=== PATIENT | male | born 2000 | race Caucasian/White ===

== ENCOUNTER 2023-11-15 20:11 | Emergency (ER) | payer OTHER, SELFPAY ==
--- NOTE | ~2023-11-15 | XR_ITS ---
EXAMINATION: XR HAND, RIGHT CLINICAL INFORMATION: Evaluate for foreign body in index finger COMPARISON: None available. TECHNIQUE: PA, lateral, and oblique views of the right hand. FINDINGS: The bones and soft tissues are normal. No fracture. Alignment is anatomic. Joint spaces are maintained. No erosions or soft tissue calcifications. XR/XR hand RT 2V IMPRESSION: Normal right hand. No foreign bodies seen
[2023-11-15 20:26] VITALS: BP 113/62; PULSE 75; RESP 18; TEMP 36.7; O2SAT 97; BMI 30.7
--- NOTE | 2023-11-15 21:31 | ED.EXTPRO ---
HPI - Extremity Problem General Chief complaint: Extremity Injury, Upper Stated complaint: R hand inj Time Seen by Provider: 11/15/23 21:31 Source: patient and RN notes reviewed Mode of arrival: ambulatory Limitations: no limitations History of Present Illness HPI Narrative: This is a 23-year-old male, with no known medical problems, presenting to the emergency department with complaints of right hand pain status post hitting a mirror. Patient states that he was playing with his girlfriend when suddenly he fell and his right hand punched a mirror which caused the mirror to break. He lacerated the dorsum of his hand. He is unsure of his tetanus is up-to-date. Denies taking any medications prior to his arrival. Denies any numbness or tingling. No other complaints or concerns at this time. MD Complaint: extremity pain Onset (ago): hour(s) Pain Consistency: constant Location: right and upper extremity Quality: burning Radiation: none Relieving factors: nothing Exacerbating factors: nothing Associated symptoms: denies other symptoms Related Data Allergies Allergy/AdvReac Type Severity Reaction Status Date / Time No Known Allergies Allergy Verified 11/15/23 20:25 [No Known Allergies*] Review of Systems Review of Systems: Yes all other systems are reviewed and are negative [facility] Past Medical History Attestation statement: The following information was validated with the patient. Social History Social History Advance Directives: No Advance Directives Information Provided: No Physical Exam Vital Signs: Vital Signs: Last Vital Signs Temp 98.1 F 11/15/23 22:35 Pulse 75 11/15/23 22:35 Resp 18 11/15/23 22:35 BP 133/62 11/15/23 22:35 Pulse Ox 98 11/15/23 22:35 O2 Del Method Room Air 11/15/23 22:35 BMI result Body Mass Index 30.7 Const: Other: General: Awake, alert, and oriented X3. No acute distress. HEENT: Normal inspection CVS: Normal heart rate and rhythm. Pulses normal. Respiratory: No respiratory distress Skin: Warm, dry, no rashes noted to exposed skin. Normal skin color. Normal skin turgor. Extremities: right hand dosal aspect there are multiple superficial lacerations noted to the dorsum of the hand, no bony tenderness. No surrounding ear edema, edema, or active bleeding. There is a 3 cm superficial laceration noted to the lateral aspect of the 3rd digit, no active bleeding. There is also a 2 cm linear superficial laceration noted overlying the 3rd metacarpal. Full range of motion. Neuro: Oriented X 3. No motor deficit. No sensory deficit. Medications Administered Discontinued Medications Generic Name Dose Route Start Last Admin Trade Name Freq PRN Reason Stop Dose Admin Diphtheria/Tetanus/Acell Pertussis 0.5 ml 11/15/23 22:15 11/15/23 22:32 Diphth,Pertus(Acell),Tet Adult 0.5 Ml Syringe IM 11/15/23 22:16 0.5 ml .ONCE ONE Administration Medical Decision Making Medical Decision Making MDM Narrative: This is a 23-year-old male presenting to the emergency department for evaluation of right hand pain status post hitting a mirror with his hand. This was accidental. Patient has scattered superficial abrasions noted to the dorsum of the hand without any active bleeding. Wounds are superficial and do not require suturing. Patient is unsure when his last tetanus was. X-ray was obtained, no foreign bodies seen. Patient given return precautions. Wounds are clean, does not require antibiotics at this time. Given return precautions as well as wound care management. Patient understands and agrees with plan. Patient stable for discharge. Differential Diagnosis Differential Diagnoses: The differential diagnosis associated with the presentation includes Fracture, contusion, laceration, abrasion Radiology Impression Discussion of test interpretation with radiology: I have reviewed the radiologist's reading. Radiologist Impression: EXAMINATION: XR HAND, RIGHT CLINICAL INFORMATION: Evaluate for foreign body in index finger COMPARISON: None available. TECHNIQUE: PA, lateral, and oblique views of the right hand. FINDINGS: The bones and soft tissues are normal. No fracture. Alignment is anatomic. Joint spaces are maintained. No erosions or soft tissue calcifications. XR/XR hand RT 2V IMPRESSION: Normal right hand. No foreign bodies seen Dictated By: Arthur Mcgill MD Procedures Procedure Narrative Procedure Narrative: Wounds cleansed using Betadine and saline. Wounds closed using Dermabond and Steri-Strips. Patient tolerated procedure well without difficulty. Discharge Plan Discharge Clinical Impression: Laceration of hand Contusion of hand, right Qualifiers: Encounter type: initial encounter Qualified Code(s): S60.221A - Contusion of right hand, initial encounter Patient Disposition: Home, Self-Care Instructions: Laceration (ED), Skin Adhesive Care (ED), Steristrips (ED), Laceration Without Closure (ED) Additional Instructions: You were seen in the emergency department due to hitting her hand. You had some lacerations to your hand that did not require any stitches. We applied Steri-Strips and skin adhesive the area to close the wounds. Keep wounds clean and dry. Do not submerge wound. If wounds become wet, pat dry. Do not pick at wounds. If any new or worsening symptoms occur including but not limited to increased redness, swelling, drainage, fevers, chills, chest pain or shortness of breath, please return for re-evaluation. We updated your tetanus shot in the department today. Stand Alone Forms: Work/School Release Interventions: ED Discharge Assessment Last Done: 11/15/23 22:35 Discharge Date/Time: 11/15/23 22:37
[2023-11-15] MEDS: Diphth,Pertus(ACell),Tet Adult 0.5 ML SYRINGE IM (22:32)
[2023-11-15 22:35] VITALS: BP 133/62; PULSE 75; RESP 18; TEMP 36.7; O2SAT 98
== END 2023-11-15 22:37 | disposition home or self-care (01) ==
PROVIDERS: Emergency Provider Emergency Medicine
DX: S61.411A Laceration without foreign body of right hand, initial encounter (principal); S60.221A Contusion of right hand, initial encounter; S60.511A Abrasion of right hand, initial encounter; W25.XXXA Contact with sharp glass, initial encounter; Y93.9 Activity, unspecified; Y92.9 Unspecified place or not applicable; Y99.8 Other external cause status; Z23 Encounter for immunization
CPT/HCPCS: 12002; 73120; 90471; 90715; 99282; 99284

== ENCOUNTER 2024-02-05 17:26 | Emergency (ER) | payer OTHER, SELFPAY | END 2024-02-05 19:23 | disposition left against medical advice (07) | PROVIDERS: Emergency Provider Emergency Medicine | DX: Z53.21 Procedure and treatment not carried out due to patient leaving prior to being seen by health care provider (principal); L02.212 Cutaneous abscess of back [any part, except buttock and flank] ==

== ENCOUNTER 2024-02-06 08:08 | Emergency (ER) | payer OTHER, SELFPAY ==
[2024-02-06 08:19] VITALS: BP 123/86; PULSE 74; RESP 18; TEMP 37.3; O2SAT 98; BMI 29.8
--- NOTE | 2024-02-06 08:39 | PC.NURSE ---
patient arrives abulatory with steady gait through triage, states he has an abcess on his tailbone since february 01 and it has gotten worse, endorses 7/10 pain to the area that worsens when he touches it or sits or lays down, denies any drainage from the area, denies any fevers or chills
--- NOTE | 2024-02-06 09:06 | ED_ITS ---
HPI - Skin/Abscess/Foreign Bdy General Chief complaint: Skin/Abscess/Foreign Body Stated complaint: Abscess Time Seen by Provider: 02/06/24 08:58 Source: patient and RN notes reviewed Mode of arrival: ambulatory Limitations: no limitations History of Present Illness ED Provider: Norma Allison PA-C HPI narrative: This is a 24-year-old male, with no known medical problems, who presents emerg ency department with complaints of pain and swelling to his left buttocks x5 days. Patient states that he had similar symptoms several years ago and went to [facility] and had this incised and drained. He states that this one is much smaller and a he is hoping he is catching this early. He denies any fevers or chills. He states pain worsens with sitting. No history of IV drug use. He has been applying topical lidocaine to the area with minimal relief. Complaints or concerns at this time. MD complaint: abscess/boil Onset (ago): day(s) Quality: aching Pain Consistency: constant Relieving factors: none Exacerbating factors: none Context: none Associated symptoms: denies other symptoms Related Data Previous Rx's ?Medication ?Instructions ?Recorded cephalexin 500 mg capsule 500 mg PO QID 5 days #20 caps 02/06/24 doxycycline hyclate 100 mg tablet 100 mg PO BID 5 days #10 tabs 02/06/24 Allergies Allergy/AdvReac Type Severity Reaction Status Date / Time No Known Allergies Allergy Verified 02/06/24 08:21 [No Known Allergies*] Review of Systems Review of Systems: Yes all other systems are reviewed and are negative Constitutional: Constitutional: Reports as per [facility] Past Medical History Attestation statement: The following information was validated with the patient. Social History Social History Smoked in Last 30 Days: No Advance Directives: No Advance Directives Information Provided: No Do you have a plan to hurt others: No Plan Physical Exam Vital Signs: Vital Signs: Last Vital Signs Temp 99.2 F 02/06/24 08:19 Pulse 74 02/06/24 08:19 Resp 18 02/06/24 08:19 BP 123/86 02/06/24 08:19 Pulse Ox 98 02/06/24 08:19 O2 Del Method Room Air 02/06/24 08:19 BMI result Body Mass Index 29.8 Const: General: cooperative, comfortable and no acute distress Orientation/consciousness: patient oriented x3 Limitations: no limitations HEENT: Head: Yes normal to inspection, Yes normocephalic and Yes atraumatic Ears: hearing grossly normal bilaterally General nose exam: Normal external nose present Face and sinus: Yes normal facial exam Mouth: Normal oral and palatal mucosa present, oropharynx normal and moist mucous membranes Throat: Yes posterior oropharynx normal Eyes: General: appearance normal, both eyes and all related structures Eyelids: Yes eyelids normal Conjunctivae: conjunctivae normal Sclerae: sclerae normal Pupils: Equal, round and reactive pupils present EOM: EOMs intact bilaterally Neck: Neck: Yes normal visual inspection, Yes full ROM and Yes no lymphadenopathy Lymphatic: no lymphadenopathy noted Chest: Chest palpation & inspection: normal inspection of the chest Resp: Effort & Inspection: normal respiratory effort and able to speak in complete sentences Auscultation: clear to auscultation bilaterally, no crackles, no rales, no rhonchi and no wheezes Cardio: Rate: regular rate Rhythm: regular rhythm Heart sounds: S1 normal heart sound present and S2 normal heart sound present GI: Inspection: Yes normal to inspection Skin: Other: Left gluteal cleft with 2 cm x 2 cm round area of induration, no fluctuance or overlying erythema or warmth. Mild tenderness to palpation. General skin exam: no rashes or lesions noted Trauma: no lacerations or abrasions Wounds: no wounds Neuro: General: patient oriented x3 and moves all extremities Cranial nerves: Yes Equal, round and reactive pupils present Extrem: General: Yes normal to inspection Right upper extremity: normal to inspection Left upper extremity: normal to inspection Right lower extremity: normal to inspection Left lower extremity: normal to inspection Medical Decision Making Medical Decision Making [facility] Narrative: This is a 24-year-old male with no known medical problems who presents emergency department with complaints of pain and swelling to his left buttocks x5 days. On arrival, vital signs within normal limits. Physical exam revealing early cellulitis/early abscess. There is no fluctuance, slight induration. Area too early to be incised and drained. Educated the importance of warm compresses 5-6 times per day. Discharged on doxycycline and Keflex. Advised to return if symptoms worsened. Advised that he may need to return in several days once area has become more fluctuant. He understands and agrees with this plan. Given strict return precautions. Patient stable for discharge. Differential Diagnosis Differential Diagnoses: The differential diagnosis associated with the presentation includes Cellulitis, abscess, pilonidal cyst Discharge Plan Discharge Clinical Impression: Pilonidal cyst Cellulitis Qualifiers: Site of cellulitis: buttock Qualified Code(s): L03.317 - Cellulitis of buttock Patient Disposition: Home, Self-Care Instructions: Pilonidal Cyst (ED), Cellulitis (ED) Additional Instructions: You were seen in the emergency department due to swelling to your left buttocks. You have the start of an abscess. Please take antibiotics as prescribed. Finish the entire course even if your feeling better. You may need to return for an incision and drainage in several days. Please apply warm compresses 5-6 times per day. You may take ibuprofen and or tylenol as needed for pain. Watch for any signs of worsening infection including but not limited to fevers, chills, worsening redness, swelling, or pain. If any of these occur, please return for re-evaluation. Prescriptions: New doxycycline hyclate 100 mg tablet 100 mg PO BID 5 Days Qty: 10 0RF cephalexin 500 mg capsule 500 mg PO QID 5 Days Qty: 20 0RF Print Language: Guatemalan
[2024-02-06 10:18] VITALS: BP 123/86; PULSE 74; RESP 18; TEMP 37.3; O2SAT 98
== END 2024-02-06 10:18 | disposition home or self-care (01) ==
PROVIDERS: Emergency Provider Emergency Medicine
DX: L05.91 Pilonidal cyst without abscess (principal); L03.317 Cellulitis of buttock; M54.50 Low back pain, unspecified
CPT/HCPCS: 99283; 99284

== ENCOUNTER 2024-02-09 12:35 | Emergency (ER) | payer OTHER, SELFPAY ==
[2024-02-09 12:47] VITALS: BP 144/83; PULSE 81; RESP 16; TEMP 36.7; O2SAT 96
--- NOTE | 2024-02-09 12:48 | ED.GENADULT ---
HPI - General Adult General Chief complaint: Skin/Abscess/Foreign Body Stated complaint: abscess recheck Time Seen by Provider: 02/09/24 15:00 Source: patient Mode of arrival: ambulatory Limitations: no limitations History of Present Illness ED Provider: Ambrosio Lua PA-C HPI narrative: 24-year-old male history of pilonidal cyst presents to ED for another episodes of pilonidal cyst. Patient was seen here on Friday and given all the antibiotics and informed to return to ED if symptoms worsen. Patient states areas now more red and painful. Patient states no fever or chills. Related Data Previous Rx's ?Medication ?Instructions ?Recorded cephalexin 500 mg capsule 500 mg PO QID 5 days #20 caps 02/06/24 doxycycline hyclate 100 mg tablet 100 mg PO BID 5 days #10 tabs 02/06/24 naproxen 500 mg tablet 500 mg PO BID PRN pain 7 days #14 02/09/24 tabs Allergies Allergy/AdvReac Type Severity Reaction Status Date / Time No Known Allergies Allergy Verified 02/09/24 12:50 [No Known Allergies*] Review of Systems Review of Systems: Pilonidal cyst Yes all other systems are reviewed and are negative [facility] Social History Social History Advance Directives: No Advance Directives Information Provided: No Physical Exam ED Vital Signs: Vital Signs - 24 hr 02/09/24 12:47 02/09/24 16:50 02/09/24 17:08 Temperature 98.1 F 98.1 F Pulse Rate 81 81 Respiratory Rate 16 20 20 Blood Pressure 144/83 H 144/83 H Pulse Oximetry 96 96 Oxygen Delivery Method Room Air Room Air Room Air BMI result Body Mass Index 30.0 Const General: cooperative, healthy appearing, comfortable, no acute distress, well developed, alert, awake and Physically active Orientation/consciousness: oriented to person, oriented to place, oriented to time and patient oriented x3 HENMT Head: Yes normal to inspection, Yes No palpable skull fracture present and Yes normocephalic Eyes General: appearance normal, both eyes and all related structures Neck Neck: Yes normal visual inspection, Yes full ROM, Yes no lymphadenopathy, Yes no meningeal signs, Yes trachea midline, Yes supple, No anterior neck swelling and No tender Chest Chest palpation & inspection: normal inspection of the chest and normal palpation of entire chest wall Resp Effort & Inspection: normal respiratory effort and able to speak in complete sentences Auscultation: clear to auscultation bilaterally Cardio Jugular venous distension: no JVD Heart sounds: S1 normal heart sound present and S2 normal heart sound present GI Inspection: Yes normal to inspection Palpation (GI): Soft to palpation, not firm, nontender, no guarding and not rigid General: No CVA tenderness and Yes no CVA tenderness Back/Spine/Pelvis Back: no CVA tenderness, No CVA tenderness and No back tenderness Back/spine/pelvis image: 1. positive for pilonidal cyst. Positive for erythema and tenderness. Positive for mild fluctuance. Negative for any active drainage. Rectal exam negative for signs of perianal abscess Skin General skin exam: no rashes or lesions noted, elasticity normal and turgor normal Neuro General: oriented to person, oriented to place, oriented to time, patient oriented x3, gait normal, tone normal, moves all extremities, Normal light touch and pain sensation, no meningeal signs, no focal motor deficits, CN's II-XI intact bilaterally and normal sensation to monofilament Extrem General: Yes normal to inspection, Yes full ROM and Yes capillary refill normal Psych Appearance: grossly normal, well kempt and not disheveled Course Course Course Narrative: This is a rapid medical exam completed by Bob POOL: Additional HPI, ROS, PE not included below will be deferred to primary provider. C/o abscess on [facility] since February 01. Was seen here over the weekend and started on antibiotics but reports that the abscess has grown and is more uncomfortable. Denies any drainage from the abscess, fever, chills, of pain with bowel movements Medications Administered Discontinued Medications Generic Name Dose Route Start Last Admin Trade Name Freq PRN Reason Stop Dose Admin Ibuprofen 800 mg 02/09/24 16:28 02/09/24 16:32 Ibuprofen 800 Mg Tablet PO 02/09/24 16:29 800 mg ONCE ONE Administration Lidocaine HCl 5 ml 02/09/24 15:40 02/09/24 16:32 Lidocaine Hcl 1 % Mpf 5 Ml Vial INFILTRATI 02/09/24 15:41 5 ml ONCE ONE Administration Medical Decision Making Medical Decision Making MDM Narrative: 24-year-old male with pilonidal cyst who he states worsened. bedside ultrasound of pilonidal cyst shows small collection not much. Shows mostly scar tissue. patient asks for release to see if incision and drainage could get some pus out. area cleaned with Betadine iodine sterile saline. Lidocaine 1% 5 mL placed into wound. Size eleven incision blade made. Forceps used to open up pockets. Negative for any pus drainage just blood. No packing needed. Patient feels relief. Patient informed to continue taking antibiotics as prescribed and follow-up with primary care provider. Patient explained worrisome signs and informed to return to the ED immeidatley if he has them Differential Diagnosis Differential Diagnoses: The differential diagnosis associated with the presentation includes ( pilonidal abscesses) Admission/Observation Consideration of admission/observation: Escalation of care including admission/observation considered Independent Historian Clinical information obtained from an independent historian. History obtained from or confirmed by: Other ( patient) External Record Review External record reviewed: Other ( prior visits) Discharge Plan Discharge Clinical Impression: Pilonidal cyst Patient Disposition: Home, Self-Care Instructions: Pilonidal Cyst (ED) Additional Instructions: return to the ED for severe pain, profuse discharge, redness, fever, chills, or any other concerning symptoms. Recommend continue taking antibiotics you were prescribed. Follow-up with primary care provider. Return to the ED in 2 days for wound evaluation. Prescriptions: New naproxen 500 mg tablet 500 mg PO BID PRN (Reason: pain) 7 Days Qty: 14 0RF No Action doxycycline hyclate 100 mg tablet 100 mg PO BID 5 Days Qty: 10 0RF cephalexin 500 mg capsule 500 mg PO QID 5 Days Qty: 20 0RF Stand Alone Forms: Work/School Release Interventions: ED Discharge Assessment Last Done: 02/09/24 17:08 Discharge Date/Time: 02/09/24 17:09 Print Language: Maltese
[2024-02-09] MEDS: Lidocaine HCl 1 % MPF 5 ML VIAL INFILTRATI (16:32)
[2024-02-09] MEDS: Ibuprofen 800 MG TABLET PO (16:32)
[2024-02-09 16:50] VITALS: RESP 20
[2024-02-09 17:08] VITALS: BP 144/83; PULSE 81; RESP 20; TEMP 36.7; O2SAT 96
== END 2024-02-09 17:09 | disposition home or self-care (01) ==
PROVIDERS: Emergency Provider Emergency Medicine
DX: L05.91 Pilonidal cyst without abscess (principal)
CPT/HCPCS: 10080; 99283; 99284